=== PATIENT | female | born 1970 | race Caucasian/White ===

== ENCOUNTER 2021-12-01 14:08 | Emergency (ER) | payer OTHER ==
[~2021-12-01] VITALS: Ht 157.5 cm; Wt 93.1 kg
[2021-12-01 14:19] VITALS: BP 144/79
[2021-12-01] MEDS: ORPHENADRINE CITRATE 60 MG/2 ML VIAL. IM ONE ×2 (14:30→14:44)
[2021-12-01] MEDS: KETOROLAC 60 MG/2 ML VIAL. IM ONE ×2 (14:30→14:44)
--- NOTE | 2021-12-01 14:35 | PHYS DOC ---
Past History Past Surgical History: No Surgical History General Adult EDM: Chief Complaint: MECHANICAL FALL HPI: HPI: Patient is a 51-year-old female who presents to the emergency department today for left sided neck, shoulder and elbow pain. Patient reports this morning she slipped on ice and fell onto her left elbow. She denies hitting her head, loss of consciousness, saddle anesthesias, loss of bowel or bladder, decreased range of motion of her extremities or deep creased sensation in her extremities. She reports she is having some tingling/[id number]-nlq-tpbwjgl sensation to the third fourth and fifth fingers of her left hand. She rates her pain 6 out of 10. She reports that she took ibuprofen after the event occurred and tried to take a nap but her pain was too severe. Review of Systems: Review of Systems: Constitutional: negative unless reported in HPI Eyes: negative unless reported in HPI HENT: negative unless reported in HPI Respiratory: negative unless reported in HPI Cardiovascular: negative unless reported in HPI GI: negative unless reported in HPI : negative unless reported in HPI Musculoskeletal: negative unless reported in HPI Integument: negative unless reported in HPI Neurologic: negative unless reported in HPI Endocrine: negative unless reported in HPI Lymphatic: negative unless reported in HPI Psychiatric: negative unless reported in HPI Physical Exam: PE: Constitutional: Well developed, well nourished, no acute distress, non-toxic appearance. [] HENT: Normocephalic, atraumatic, bilateral external ears normal, oropharynx moist, no oral exudates, nose normal. [] Eyes: PERRL, EOMI, conjunctiva normal, no discharge. [] Neck: Normal range of motion, no bony spinal tenderness, left paraspinal cervical tenderness with palpation, supple, no stridor. [] Cardiovascular: Normal peripheral perfusion Lungs & Thorax: Normal work of breathing, no tachypnea Abdomen: Soft and obese Skin: Warm, dry, no erythema, no rash. [] Back: No bony spinal tenderness, normal range of motion Extremities: No tenderness, no cyanosis, no clubbing, ROM intact, no edema, patient ambulatory. Left shoulder: Pain with palpation to trapezius muscle, generalized shoulder elbow joint, patient has ecchymosis and swelling to her left elbow, range of motion intact to shoulder/elbow and wrist, neurovascularly intact, no obvious deformity, no crepitus no open wounds [] Neurologic: Alert and oriented X 3, normal motor function, normal sensory function, no focal deficits noted. [] Psychologic: Affect normal, judgement normal, mood normal. [] Current Patient Data: Vital Signs: Vital Signs Date Time Temp Pulse Resp B/P (MAP) Pulse Ox O2 Delivery O2 Flow Rate FiO2 12/01/21 14:19 97.9 89 16 144/79 (100) 98 Room Air EKG: EKG: [] Radiology/Procedures: Radiology/Procedures: []PROCEDURE: CT HEAD AND CERVICAL SPINE WO CT HEAD AND C-SPINE WO History: Head injury. Pain. Comparison: None. Technique: Noncontrast CT of the head and cervical spine. Findings: CT HEAD: There is no evidence for intracranial mass or hemorrhage. There is no hydrocephalus or midline shift. No abnormal extra-axial fluid collections are present. No evidence of acute territorial infarction. Mild right maxillary sinus mucosal thickening versus mucus retention cyst. The skull and scalp are within normal limits. CT CERVICAL SPINE: There is no evidence for fracture in the cervical spine. Reversal of the normal cervical lordosis may be due to positioning. Degenerative disc space narrowing and circumferential osteophytes at C5-C6 and C6-C7 causing mild to moderate bilateral foraminal stenoses at these levels. No destructive osseous lesions are seen. Tiny right lung apex bleb. Impression: 1. No acute intracranial findings. 2. No acute osseous abnormality in the cervical spine. 3. Degenerative disc disease with circumferential osteophytes at C5-C6 and C6- C7 causing mild to moderate bilateral foraminal stenoses. PROCEDURE: SHOULDER 2+V LEFT Exam: XR SHOULDER_LEFT 2+ VIEWS, XR ELBOW COMPLETE_LEFT 3+VIEWS History: Fall. Comparison: None. Findings: Osseous mineralization is normal. No acute fracture or dislocaton. Normal a lignment at the acromioclavicular and glenohumeral joints. No elbow effusion. No focal soft tissue swelling. Impression: 1. No acute osseous abnormality in the left shoulder and elbow. Electronically signed by: Silvano Patterson MD (12/01/2021 2:55 PM) [id number] DICTATED AND SIGNED BY: SILVANO PATTERSON MD DATE: 12/01/21 1454 CC: TITO BOND EQUINE DENTIST; NON,STAFF ~[facility] 0 ------- Exposure: One or more of the following individualized dose reduction techniques were utilized for this examination: 1. Automated exposure control 2. Adjustment of the mA and/or kV according to patient size 3. Use of iterative reconstruction technique. Electronically signed by: Silvano Patterson MD (12/01/2021 2:02 PM) [id number] DICTATED AND SIGNED BY: SILVANO PATTERSON MD DATE: 12/01/21 1357 CC: TITO BOND EQUINE DENTIST; NON,STAFF ~[facility] 0 Heart Score: C/O Chest Pain: N/A Risk Factors: Risk Factors: DM, Current or recent (<one month) smoker, HTN, HLP, family history of CAD, obesity. Risk Scores: Score 0 - 3: 2.5% MACE over next 6 weeks - Discharge Home Score 4 - 6: 20.3% MACE over next 6 weeks - Admit for Clinical Observation Score 7 - 10: 72.7% MACE over next 6 weeks - Early Invasive Strategies Course & Med Decision Making: Course & Med Decision Making Pertinent Labs and Imaging studies reviewed. (See chart for details) [] Patient presents to the emergency department after slipping on ice and falling this morning. She is reporting left-sided neck, shoulder and elbow pain. Imaging was performed that showed no acute findings but degenerative changes discussed with supervising physician. Patient is having tenderness with palpation of her trapezius muscle. Patient was treated with muscle relaxer. Patient advised to take anti-inflammatory medications at home and she will be discharged home with muscle relaxer as she likely strained a muscle. Also a dvised to apply ice. I discussed with patient all findings and diagnostic testing as well as the need to follow-up with PCP for further evaluation and treatment or return to the ER if any new or worsening symptoms. Strict return precautions were also discussed at length. Patient voiced understanding and agreement with the plan. Patient is hemodynamically stable at the time of d isposition. Lucien Disclaimer: Lucien Disclaimer: This electronic medical record was generated, in whole or in part, using a voice recognition dictation system. Departure Departure: Impression: Primary Impression: Fall Qualified Codes: W19.XXXA - Unspecified fall, initial encounter Disposition: HOME / SELF CARE / HOMELESS Condition: GOOD Patient Instructions: Elbow Contusion Additional Instructions: You were seen in the emergency department today following a fall with complaints of left neck, shoulder and elbow pain. Imaging was performed that showed no acute findings. It is likely that he strained a muscle. When you fell onto your elbow you also likely hit your ulnar nerve causing the pins and needles sensation in your fingers and this can take awhile to improve. Take anti- inflammatory medications like ibuprofen or naproxen at home. You are being discharged home with a muscle relaxer. This medication may cause sedation so do not take any need to be alert, driving a vehicle or with alcohol. You can also apply ice to any sore areas. Follow-up with your primary care provider tomorrow regarding your ER visit. Return to the emergency department if you develop worsening of your pain, decreased range of motion of your arm, intractable nausea or vomiting, vision changes, inability to bear weight or walk, decreased sensation in your arm or any new or worsening concerns. Scripts Cyclobenzaprine Hcl (CYCLOBENZAPRINE HCL) 5 Mg Tablet 1 TAB PO TID for muscle spasm for 7 Days, #21 TAB 0 Refills Prov: TITO BOND APRN 12/01/21 TITO BOND APRN Dec 01, 2021 14:35
[2021-12-01] MEDS ORDERED: HYDROcodone/APAP 5/325MG 1 TAB TABLET PO ONE (14:45)
--- NOTE | 2021-12-01 14:56 | RAD ---
CT CERVICAL SPINE WO History: Left-sided pain after trauma. Comparison: None. Technique: Noncontrast CT of the cervical spine. Findings: There are 7 nonrib-bearing cervical vertebral segments. There is no evidence for acute fracture in the cervical spine. No destructive osseous lesions are see n. Alignment is normal. Mild disc space narrowing with large posterior endplate and uncovertebral osteophytes at C4-C5, C5-C6 and C6-C7. Osteophytes cause moderate narrowing of the spinal canal to 6 mm AP at the level of C5-C6. No signifi cant neural foraminal stenosis. Limited evaluation of the soft tissues of the neck and of the upper chest is unremarkable. Impression: 1. No acute osseous abnormality in the spine. 2. Degenerative disc disease narrowing the spinal canal to 6 mm AP the level of C5-C6. Recommend MRI there is concern for cervical cord contusion. ------- Exposure: One or more of the following individualized dose reduction techniques were utilized for thi s examination: 1. Automated exposure control 2. Adjustment of the mA and/or kV according to patient size 3. Use of iterative reconstruction technique. Electronically signed by: Silvano Patterson MD (12/01/2021 2:53 PM) [id number]
--- NOTE | 2021-12-01 14:58 | RAD ---
Exam: XR SHOULDER_LEFT 2+ VIEWS, XR ELBOW COMPLETE_LEFT 3+VIEWS History: Fall. Comparison: None. Findings: Osseous mineralization is normal. No acute fracture or dislocaton. Normal alignment at the acromiocla vicular and glenohumeral joints. No elbow effusion. No focal soft tissue swelling. Impression: 1. No acute osseous abnormality in the left shoulder and elbow. Electronically signed by: Silvano Patterson MD (12/01/2021 2:55 PM) [id number]
[2021-12-01] MEDS ORDERED: CYCL5TAB PO (15:06)
== END 2021-12-01 15:20 | disposition home or self-care (01) ==
LOC: ER 14:08
DX: S50.02XA Contusion of left elbow, initial encounter (principal); M54.2 Cervicalgia; M25.512 Pain in left shoulder; W00.0XXA Fall on same level due to ice and snow, initial encounter; Y93.89 Activity, other specified; Y92.89 Other specified places as the place of occurrence of the external cause; Y99.8 Other external cause status
CPT/HCPCS: 72125; 73030; 73080; 99284; J1885; J2360